=== PATIENT | male | born 1985 | race Caucasian/White ===

== ENCOUNTER 2018-04-29 10:25 | Emergency (ER) | payer BC ==
[2018-04-29 11:11] LABS: PLATELET COUNT 170 10^3/uL (150-400)
--- NOTE | 2018-04-29 11:16 | EDPHY ---
H & P Stated Complaint: CP/SOB recent travel Time Seen by Provider: 04/29/18 11:08 HPI/ROS: CHIEF COMPLAINT: Left-sided rib pain HISTORY OF PRESENT ILLNESS: The patient is a 32-year-old man who returned from a ski trip yesterday in [facility] and is complaining of left-sided rib pain with movement or palpation. He states that he woke up with the pain the morning before his flight here. No shortness of breath. He does not remember any injury or trauma. He states that he did fracture rib on the other side several years ago and that this feels similar. He presented to an urgent care requesting x-ray and they referred him here to rule out PE. He has not had any leg swelling. No tachycardia. No shortness of breath. No smoking. No hormones. His symptoms began before his travel although he had travel to [place] 10 days prior. No history of cardiac or pulmonary disease. He describes the pain as sharp and focal. Severity: Moderate Modifying factors: Movement or palpation REVIEW OF SYSTEMS: Constitutional: denies: chills, fever, recent illness, recent injury EENTM: denies: blurred vision, double vision, nose congestion Respiratory: denies: cough, shortness of breath Cardiac: denies: irregular heart rate, lightheadedness, palpitations Gastrointestinal/Abdominal: denies: abdominal pain, diarrhea, nausea, vomiting, blood streaked stools Genitourinary: denies: dysuria, frequency, hematuria, pain Musculoskeletal: See HPI Skin: denies: lesions, rash, jaundice, bruising Neurological: denies: headache, numbness, paresthesia, tingling, dizziness, weakness Hematologic/Lymphatic: denies: blood clots, easy bleeding, easy bruising Immunologic/allergic: denies: HIV/AIDS, transplant 10 systems reviewed and negative except as noted EXAM: GENERAL: Well-appearing, well-nourished and in no acute distress. HEAD: Atraumatic, normocephalic. EYES: Pupils equal round and reactive to light, extraocular movements intact, sclera anicteric, conjunctiva are normal. ENT: TMs normal, nares patent, oropharynx clear without exudates. Moist mucous membranes. NECK: Normal range of motion, supple without lymphadenopathy or JVD. LUNGS: Breath sounds clear to auscultation bilaterally and equal. No wheezes rales or rhonchi. HEART: Left-sided anterior palpable rib pain, no step-offs or crepitus. Pain with rotation or sitting up. Regular rate and rhythm without murmurs, rubs or gallops. ABDOMEN: Soft, nontender, normoactive bowel sounds. No guarding, no rebound. No masses appreciated. BACK: No CVA tenderness, no spinal tenderness, step-offs or deformities EXTREMITIES: Normal range of motion, no pitting or edema. No clubbing or cyanosis. NEUROLOGICAL: Cranial nerves II through XII grossly intact. Normal speech, normal gait. 5/5 strength, normal movement in all extremities, normal sensation , normal reflexes PSYCH: Normal mood, normal affect. SKIN: Warm, dry, normal turgor, no visible rashes or lesions. Source: Patient Exam Limitations: No limitations - Personal History Current Tetanus/Diphtheria Vaccine: Yes - Medical/Surgical History Hx Asthma: Yes Hx Chronic Respiratory Disease: No Hx Diabetes: No Hx Cardiac Disease: No Hx Renal Disease: No Hx Cirrhosis: No Hx Alcoholism: No Other PMH: Denies - Family History Significant Family History: No pertinent family hx - Social History Smoking Status: Former smoker Alcohol Use: None Constitutional: Initial Vital Signs Temperature (C) 36.5 C 04/29/18 10:28 Heart Rate 72 04/29/18 10:28 Respiratory Rate 18 04/29/18 10:28 Blood Pressure 140/94 H 04/29/18 10:28 O2 Sat (%) 99 04/29/18 10:28 O2 Delivery Mode Room Air Allergies/Adverse Reactions: No Known Allergies Allergy (Verified 04/29/18 10:32) Home Medications: Medication Instructions Recorded Albuterol Sulfate 09/10/13 Ibuprofen 09/10/13 Loratadine 09/10/13 Medical Decision Making - Diagnostics EKG Interpretation: An EKG obtained and was read and documented in trace view. Please see trace view for full reading and report. Sinus rhythm, no acute ischemic changes Imaging: Discussed imaging studies w/ computer repair technician Radiologist ED Course/Re-evaluation: 11:45 a.m. we discussed x-ray and lab results which are all very reassuring. I recommended anti-inflammatories, rest and heat packs. Patient feel reassured by this. We discussed indications for returning. They feel comfortable going home. Differential Diagnosis: Partial list of the Differential diagnosis considered include but were not limited to; chest wall pain, contusion, fracture and although unlikely based on the history and physical exam, I also considered pneumothorax, PE, acute coronary disease. I discussed these differential diagnoses and the plan with the patient as well as the usual and expected course. The patient understands that the diagnosis is provisional and that in medicine we are not always correct and that further workup is often warranted. Usual and customary warnings were given. All of the patient's questions were answered. The patient was instructed to return to the emergency department should the symptoms at all worsen or return, otherwise to followup with the physician as we discussed. - Data Points Laboratory Results: Laboratory Results 04/29/18 10:40 04/29/18 10:40 Point of Care Test Results: Chemistry 04/29/18 10:48 POC Troponin I 0.00 ng/mL ng/mL (0.00-0.08) Departure - Departure Disposition: Home, Routine, Self-Care Clinical Impression: Chest wall pain Condition: Good Instructions: Chest Wall Pain (ED) Referrals: Monica Hoover MD [Primary Care Provider] - As per Instructions
--- NOTE | 2018-04-29 11:17 | CPEKG ---
Test Reason : OPEN Blood Pressure : / mmHG Vent. Rate : 062 BPM Atrial Rate : 062 BPM P-R Int : 148 ms QRS Dur : 104 ms QT Int : 386 ms P-R-T Axes : 072 088 050 degrees QTc Int : 392 ms Sinus rhythm Confirmed by Yusef Will ([id number]) on 04/29/2018 11:16:20 AM Referred By: Confirmed By:Yusef Will
[2018-04-29 12:10] VITALS: BP 108/87
== END 2018-04-29 12:07 | disposition home or self-care (01) ==
DX: R07.89 Other chest pain (principal)
CPT/HCPCS: 84484-ER